=== PATIENT | male | born 1990 ===

== ENCOUNTER 2024-03-19 23:18 | Emergency (ER) | payer BC ==
[2024-03-19 23:25] VITALS: BP 117/83; PULSE 84; RESP 18; TEMP 97.7
--- NOTE | 2024-03-19 23:49 | ED ---
Medical Clearance HPI - General Chief complaint: Medical Clearance Stated complaint: Drug Test Source: patient, police Mode of arrival: ambulatory - History of Present Illness Initial comments: Patient is a 34-year-old gentleman with no significant medical history presenting today for medical clearance for care home. Per police patient was found driving intoxicated. Patient endorses alcohol use tonight but refuses to state how much. Patient denies any injuries, headache, changes in vision, numbness, weakness, chest pain, abdominal pain or shortness of breath. He does endorse chronic right ankle pain, but denies any new injuries. Allergies/Adverse reactions: Allergies Allergy/AdvReac Type Severity Reaction Status Date / Time Penicillins Allergy Unknown Verified 03/19/24 23:26 Childhood Review of Systems ROS Statement: Those systems with pertinent positive or pertinent negative responses have been documented in the HPI. ROS Other: All systems not noted in ROS Statement are negative. Past Medical History Past Medical History: No Reported History Past Surgical History: Joint Replacement, Orthopedic Surgery Past Psychological History: No Psychological Hx Reported Smoking Status: Never smoker Past Alcohol Use History: Occasional Past Drug Use History: None Reported General Exam - General Exam Comments Initial Comments: PE: CONSTITUTIONAL: No apparent distress, well appearing, smells strongly of alcohol SKIN: Warm, dry, no jaundice, hives or petechiae EYES: Pupils are equally round, extraocular movements intact without nystagmus, clear conjunctiva, non-icteric sclera HENT: Normocephalic, atraumatic, moist mucus membranes, oropharynx clear without exudates NECK: , Full range of motion, normal appearance PULMONARY: Clear to auscultation without wheezes, rhonchi, or rales, normal excursion, no accessory muscle use and no stridor CARDIOVASCULAR: Regular rate, rhythm, normal S1 and S2. No appreciated murmurs, rubs or gallops. Extremities well-perfused no lower extremity edema MUSCULOSKELETAL: Extremities have no gross deformity, no edema, redness, or swelling. Right ankle (where patient states his chronic pain is) is atraumatic, not erythematous, no skin lesions or bruising, 2+ DP pulse palpated, neurovascularly intact and able to move through full range of motion NEUROLOGIC:_a/o x 3, GCS 15, normal mentation and speech. Moves all extremities x 4 without motor or sensory deficit, no the patient is handcuffed so range of motion of the upper extremities is limited PSYCHIATRIC:_Pleasant and cooperative mood and affect, though does declined to state how much alcohol he had tonight, thought process is clear and linear Limitations: no limitations Course Vital Signs 03/19/24 23:20 Temperature 97.7 F Pulse Rate 84 Respiratory 18 Rate Blood Pressure 117/83 O2 Sat by Pulse 97 Oximetry Medical Decision Making - Medical Decision Making Was pt. sent in by a medical professional or institution (, [facility], [facility], urgent care, hospital, or snf...) When possible be specific @ -Patient was brought in by police for medical clearance for care home Did you speak to anyone other than the patient for history (EMS, parent, family, police, friend...)? What history was obtained from this source @ -Please assist in providing history stating that they arrested the patient for driving while intoxicated, they state the patient did not suffer any trauma prior to arrival Did you review nursing and triage notes (agree or disagree)? Why? @ -I reviewed nursing and triage notes, I agree with the exception of the fact that patient did endorse chronic right ankle pain to me otherwise denied any pain or injuries Were old charts reviewed (outside hosp., previous admission, EMS record, old EKG, old radiological studies, urgent care reports/EKG's, snf records)? Report findings @ -[No old charts available for review Differential Diagnosis (chest pain, altered mental status, abdominal pain women, abdominal pain men, vaginal bleeding, weakness, fever, dyspnea, syncope, headache, dizziness, GI bleed, back pain, seizure, CVA, palpatations, mental health, musculoskeletal)? @ -Not applicable EKG interpreted by me (3pts min.). @ -As above X-rays interpreted by me (1pt min.). @ -None done CT interpreted by me (1pt min.). @ -None done U/S interpreted by me (1pt. min.). @ -None done What testing was considered but not performed or refused? (CT, X-rays, U/S, labs)? Why? @ -None What meds were considered but not given or refused? Why? @ -None Did you discuss the management of the patient with other professionals (professionals i.e. , [facility], [facility], lab, RT, psych nurse, social welfare clerk, bulk materials handling plant operator, teacher, strike warfare/missile systems officer, business case analyst)? Give summary @ -No Was smoking cessation discussed for >3mins.? @ -No Was critical care preformed (if so, how long)? @ -No Were there social determinants of health that impacted care today? How? (Homelessness, low income, unemployed, alcoholism, drug addiction, transportation, low edu. Level, literacy, decrease access to med. care, care home, rehab)? @ -No Was there de-escalation of care discussed even if they declined (Discuss DNR or withdrawal of care, Hospice)? @ -No What co-morbidities impacted this encounter? (DM, HTN, Smoking, COPD, CAD, Cancer, CVA, ARF, Chemo, Hep., AIDS, mental health diagnosis, sleep apnea, morbid obesity)? @ -None Was patient admitted / discharged? Hospital course, mention meds given and route, prescriptions, significant lab abnormalities, going to OR and other pertinent info. @Discharged to care home-patient presents in police custody for driving while intoxicated brought in for medical clearance for care home. On my assessment patient is well-appearing sitting comfortably, handcuffed in a chair. Accompanied by police. Does smell of alcohol. Patient does endorse alcohol use tonight. Denies additional needs or concerns with exception of chronic right ankle pain when asked about areas of pain. PBT obtained. Patient discharged to care home in stable condition. Undiagnosed new problem with uncertain prognosis? @ -No Drug Therapy requiring intensive monitoring for toxicity (Heparin, Nitro, Insulin, Cardizem)? @ -No Were any procedures done? @ -No Diagnosis/symptom? @Alcohol intoxication Acute, or Chronic, or Acute on Chronic? @Acute Uncomplicated (without systemic symptoms) or Complicated (systemic symptoms)? @Uncomplicated Side effects of treatment? @ -No Exacerbation, Progression, or Severe Exacerbation? @ -No Poses a threat to life or bodily function? How? (Chest pain, USA, MS, pneumonia, PE, COPD, DKA, ARF, appy, cholecystitis, CVA, Diverticulitis, Homicidal, Suicidal, threat to staff... and all critical care pts) @ -No Disposition Clinical Impression: Medical clearance for incarceration, Alcohol intoxication Disposition: HOME SELF-CARE Condition: Good Instructions (If sedation given, give patient instructions): Alcohol Intoxication (ED), Medical Clearance for Substance Abuse Treatment (ED) Additional Instructions: Please refrain from drinking and driving as this can be dangerous to both your lives and others lives. PLEASE call your primary care physician as soon as possible to arrange / discuss plan for followup appointment. Appointment in the next 1-3 days is strongly encouraged if possible. PLEASE let us know here before you leave if there is anything further we can do to be of any assistance. Take care and feel Better! Is patient prescribed a controlled substance at d/c from ED?: No Referrals: Russell Monroy MD [Primary Care Provider] - 1-2 days
== END 2024-03-20 00:16 | disposition home or self-care (01) ==
LOC: EC 23:18
DX: Z02.89 Encounter for other administrative examinations (principal); G89.29 Other chronic pain; F10.129 Alcohol abuse with intoxication, unspecified; Z88.0 Allergy status to penicillin
CPT/HCPCS: 99281